=== PATIENT | female | born 1995 | race African-American/Black ===

== ENCOUNTER 2020-05-04 09:00 | Emergency (ER) | payer OTHER, SELFPAY ==
[2020-05-04 09:13] VITALS: PULSE 94; RESP 18; TEMP 36.4; O2SAT 99; BMI 24.2
--- NOTE | 2020-05-04 09:23 | ED_ITS ---
HPI - URI/Sore Throat General Chief Complaint: Upper Respiratory Symptoms <Jailyn Ceja NP - Last Filed: 05/04/20 11:05> Stated Complaint: covid test <Jailyn Ceja NP - Last Filed: 05/04/20 11:05> Time Seen by Provider: 05/04/20 09:16 <Jailyn Ceja NP - Last Filed: 05/04/20 11:05> Source: patient <Jailyn Ceja NP - Last Filed: 05/04/20 11:05> Mode of arrival: ambulatory <Jailyn Ceja NP - Last Filed: 05/04/20 11:05> Limitations: no limitations <Jailyn Ceja NP - Last Filed: 05/04/20 11:05> History of Present Illness HPI Narrative: 24-year-old female previously healthy here with cough, sore throat, runny nose, headache x2 days. No fevers or chills. <Jailyn Ceja NP - Last Filed: 05/04/20 11:05> MD elicited complaint: cough, sore throat and rhinorrhea <Jailyn Ceja NP - Last Filed: 05/04/20 11:05> Onset (ago): day(s) <Jailyn Ceja NP - Last Filed: 05/04/20 11:05> Consistency: constant <Jailyn Ceja NP - Last Filed: 05/04/20 11:05> Severity: mild <Jailyn Ceja NP - Last Filed: 05/04/20 11:05> Able to tolerate fluids by mouth: Yes <Jailyn Ceja NP - Last Filed: 05/04/20 11:05> Exacerbating factors: nothing <Jailyn Ceja NP - Last Filed: 05/04/20 11:05> Relieving factors: nothing <Jailyn Ceja NP - Last Filed: 05/04/20 11:05> Associated symptoms: denies other symptoms <Jailyn Ceja NP - Last Filed: 05/04/20 11:05> Treatments prior to arrival: none <Jailyn Ceja NP - Last Filed: 05/04/20 11:05> Related Data Allergies/Adverse Reactions: Allergies Allergy/AdvReac Type Severity Reaction Status Date / Time No Known Allergies Allergy Verified 05/04/20 09:16 <Jailyn Ceja NP - Last Filed: 05/04/20 11:05> Review of Systems Review of Systems: Yes all other systems are reviewed and are negative <Jailyn Ceja NP - Last Filed: 05/04/20 11:05> Constitutional: Constitutional: Reports no additional constitutional complaints, Denies body ache(s), Denies chills, Denies fever(s), Reports headache(s) and Denies weakness <Jailyn Ceja NP - Last Filed: 05/04/20 11:05> Eyes: Eyes: Reports no additional eye complaints and Denies change in vision <Jailyn Ceja NP - Last Filed: 05/04/20 11:05> ENT: Reports system reviewed and no additional complaints, except as documented, Denies dizziness, Reports headache(s), Denies nasal congestion, Reports nasal discharge, Denies neck pain and Reports sore throat <Jailyn Ceja NP - Last Filed: 05/04/20 11:05> Cardiovascular: Cardiovascular: Reports no additional cardiovascular complaints, Denies chest pain, Denies leg edema and Denies dyspnea <Jailyn Ceja NP - Last Filed: 05/04/20 11:05> Respiratory: Respiratory: Reports no additional respiratory complaints, Reports cough and Denies dyspnea <Jailyn Ceja NP - Last Filed: 05/04/20 11:05> Gastrointestinal: Gastrointestinal: Reports no additional gastrointestinal complaints, Denies abdominal pain, Denies diarrhea, Denies nausea and Denies vomiting <Jailyn Ceja NP - Last Filed: 05/04/20 11:05> Genitourinary: Genitourinary: Reports no additional female genitourinary complaints and Denies urinary incontinence <Jailyn Ceja NP - Last Filed: 05/04/20 11:05> Musculoskeletal: Musculoskeletal: Reports no additional musculoskeletal complaints, Denies back pain, Denies arthralgias, Denies joint swelling, Denies neck pain, Denies numbness and Denies tingling <Jailyn Ceja NP - Last Filed: 05/04/20 11:05> Integumentary/Breasts: Skin/Breast: Reports system reviewed and no additional complaints, except as docu and Denies rash <Jailyn Ceja NP - Last Filed: 05/04/20 11:05> Neurologic: Denies dizziness, Reports headache(s), Denies numbness, Denies tingling and Denies weakness <Jailyn Ceja NP - Last Filed: 05/04/20 11:05> PMF Past Medical History Attestation statement: The following information was validated with the patient. <Jailyn Ceja NP - Last Filed: 05/04/20 11:05> Source: old records reviewed and nursing notes reviewed <Jailyn Ceja NP - Last Filed: 05/04/20 11:05> Medical History: Medical History No known health problems <Jailyn Ceja NP - Last Filed: 05/04/20 11:05> Social History Social History: Social History Advance Directives: No Advance Directives Information Provided: No <Jailyn Ceja NP - Last Filed: 05/04/20 11:05> Physical Exam Vital Signs: Vital Signs: Last Vital Signs Temp 97.6 F 05/04/20 09:13 Pulse 94 05/04/20 09:13 Resp 18 05/04/20 09:13 Pulse Ox 99 05/04/20 09:13 Body Mass Index 24.2 <Jailyn Ceja NP - Last Filed: 05/04/20 11:05> Vital Signs: Last Vital Signs Temp 97.6 F 05/04/20 09:13 Pulse 94 05/04/20 09:13 Resp 18 05/04/20 09:13 Pulse Ox 99 05/04/20 09:13 Body Mass Index 24.2 <Franky Campos MD - Last Filed: 05/22/20 19:56> Const: General: cooperative, healthy appearing, comfortable and no acute distress <Jailyn Ceja NP - Last Filed: 05/04/20 11:05> Orientation/consciousness: patient oriented x3 <Jailyn Ceja NP - Last Filed: 05/04/20 11:05> Limitations: no limitations <Jailyn Ceja NP - Last Filed: 05/04/20 11:05> HENMT: Head: Yes normal to inspection <Jailyn Ceja NP - Last Filed: 05/04/20 11:05> Ears: hearing grossly normal bilaterally <Jailyn Ceja NP - Last Filed: 05/04/20 11:05> General nose exam: Normal external nose present <Jailyn Ceja NP - Last Filed: 05/04/20 11:05> Face and sinus: Yes normal facial exam <Jailyn Ceja NP - Last Filed: 05/04/20 11:05> Mouth: Normal oral and palatal mucosa present <Jailyn Ceja NP - Last Filed: 05/04/20 11:05> Throat: Yes posterior oropharynx normal <Jailyn Ceja NP - Last Filed: 05/04/20 11:05> Eyes: General: appearance normal, both eyes and all related structures <Jailyn Ceja NP - Last Filed: 05/04/20 11:05> Pupils: Equal, round and reactive pupils present <Jailyn Ceja NP - Last Filed: 05/04/20 11:05> Neck: Neck: Yes normal visual inspection <Jailyn Ceja NP - Last Filed: 05/04/20 11:05> Chest: Chest palpation & inspection: normal inspection of the chest <Jailyn Ceja NP - Last Filed: 05/04/20 11:05> Resp: Effort & Inspection: normal respiratory effort <Jailyn Ceja NP - Last Filed: 05/04/20 11:05> Auscultation: clear to auscultation bilaterally <Jailyn Ceja NP - Last Filed: 05/04/20 11:05> Cardio: Rate: regular rate <Jailyn Ceja NP - Last Filed: 05/04/20 11:05> Rhythm: regular rhythm <Jialyn Ceja NP - Last Filed: 05/04/20 11:05> Peripheral pulses: Peripheral pulses 2+ throughout <Jailyn Ceja NP - Last Filed: 05/04/20 11:05> GI: Inspection: Yes normal to inspection <Jailyn Ceja NP - Last Filed: 05/04/20 11:05> Palpation (GI): Soft to palpation and nontender <Jailyn Ceja [employer] - Last Filed: 05/04/20 11:05> Auscultation: normal bowel sounds <Jailyn Ceja NP - Last Filed: 05/04/20 11:05> Back/Spine/Pelvis: Thoracic/Lumbar Spine: thoracic and lumbar spine normal to inspection <Jailyn Ceja NP - Last Filed: 05/04/20 11:05> Skin: General skin exam: no rashes or lesions noted <Jailyn Ceja NP - Last Filed: 05/04/20 11:05> Neuro: General: patient oriented x3, no focal motor deficits and normal sensation to monofilament <Jailyn Ceja NP - Last Filed: 05/04/20 11:05> Cranial nerves: Yes Equal, round and reactive pupils present <Jailyn Ceja NP - Last Filed: 05/04/20 11:05> Cognition (Neuro): normal cognition <Jailyn Ceja NP - Last Filed: 05/04/20 11:05> Gait exam (Neuro): Normal gait present <Jailyn Ceja NP - Last Filed: 05/04/20 11:05> Motor exam (neuro): 5/5 motor strength present throughout <Jailyn Ceja NP - Last Filed: 05/04/20 11:05> Extrem: General: Yes normal to inspection <Jailyn Ceja NP - Last Filed: 05/04/20 11:05> Course Course Course Narrative: Patient here with upper respiratory symptoms x2 days. Will check COVID, flu test. 1100-COVID and flu swab negative. Likely URI. Reviewed worrisome signs and symptoms of when to return to the emergency department. Comfortable discharge home. <Jailyn Ceja NP - Last Filed: 05/04/20 11:05> I have reviewed the chart <Franky Campos MD - Last Filed: 05/22/20 19:56> MDM - URI/Sore Throat Medical Records Attestation: I reviewed the patient's medical records. <Jailyn Ceja NP - Last Filed: 05/04/20 11:05> Lab Data Attestation: I reviewed the patient's lab results. <Jailyn Ceja NP - Last Filed: 05/04/20 11:05> Labs: Lab Results 05/04/20 Range/Units 09:54 Coronavirus (PCR) NEGATIVE (Negative) Influenza Type A (PCR) NEGATIVE (Negative) Influenza Type B (PCR) NEGATIVE (Negative) RSV RNA Qual (PCR) NEGATIVE (Negative) <Jailyn Ceja NP - Last Filed: 05/04/20 11:05> Lab Results 05/04/20 Range/Units 09:54 Coronavirus (PCR) NEGATIVE (Negative) Influenza Type A (PCR) NEGATIVE (Negative) Influenza Type B (PCR) NEGATIVE (Negative) RSV RNA Qual (PCR) NEGATIVE (Negative) <Franky Campos MD - Last Filed: 05/22/20 19:56> Discharge Plan Discharge Clinical Impression: Viral infection <Jailyn Ceja NP - Last Filed: 05/04/20 11:05> Patient Disposition: Home, Self-Care <Jailyn Ceja NP - Last Filed: 05/04/20 11:05> Instructions: Viral Syndrome (ED) <Jailyn Ceja NP - Last Filed: 05/04/20 11:05> Additional Instructions: We have tested you today for COVID 19. Test results take 1-2 days and we will call you with the results negative or positive. Take tylenol or motrin if able as needed for pain or fever. Stay well hydrated with fluids like water, gatorade and/or powerade. Wash hands at home. If living with others try to self isolate if possible. If unable wear a mask around others in your home and wash hands frequently. If COVID test is positive you will need to self isolate for a total of 14 days from when your symptoms started. You may return to work sooner if testing is negative and all symptoms resolved >72 hours. You should return to the emergency department for severe shortness of breath, chest pain or fever which does not respond to both tylenol and motrin at home. <Jailyn Ceja NP - Last Filed: 05/04/20 11:05> Referrals: Physician,Unknown [Primary Care Provider] - 2 days <Jailyn Ceja NP - Last Filed: 05/04/20 11:05> Stand Alone Forms: Work/School Release <Jailyn Ceja NP - Last Filed: 05/04/20 11:05> Interventions: ED Discharge Assessment Last Done: 05/04/20 10:13 <Jailyn Ceja NP - Last Filed: 05/04/20 11:05> Discharge Date/Time: 05/04/20 10:20 <Jailyn Ceja NP - Last Filed: 05/04/20 11:05>
[2020-05-04 10:54] LABS: Influenza A PCR NEGATIVE (Negative); Influenza B PCR NEGATIVE (Negative); Resp Syncy Virus RNA Qual PCR NEGATIVE (Negative); SARS COV2 PCR INHOUSE NEGATIVE (Negative)
== END 2020-05-04 10:20 | disposition home or self-care (01) ==
PROVIDERS: Nurse Practitioner Family; Emergency Provider Emergency Medicine
DX: B34.9 Viral infection, unspecified (principal); R05 Cough; Z20.828 Contact with and (suspected) exposure to other viral communicable diseases
CPT/HCPCS: 0241U; 99283